=== PATIENT | male | born 1955 | race Caucasian/White ===

== ENCOUNTER 2025-06-27 11:23 | Emergency (ER) | payer MEDICARE, BC ==
[~2025-06-27] VITALS: Ht 170.2 cm; Wt 72.6 kg
[2025-06-27] MEDS ORDERED: IBUP-1955 PO (13:07)
[2025-06-27] MEDS ORDERED: HYDR-4303 PO (13:07)
[2025-06-27 13:36] VITALS: BP 142/80; TEMP 98.8; O2SAT 98
== END 2025-06-27 13:37 | disposition home or self-care (01) ==
LOC: ER 11:30
DX: S83.92XA Sprain of unspecified site of left knee, initial encounter (principal); I51.9 Heart disease, unspecified; X58.XXXA Exposure to other specified factors, initial encounter; Y93.K1 Activity, walking an animal; Y92.89 Other specified places as the place of occurrence of the external cause; Y99.8 Other external cause status
CPT/HCPCS: 73564-TC